=== PATIENT | female | born 1945 | race Caucasian/White ===

== ENCOUNTER 2023-04-04 18:01 | Inpatient (IN) | payer OTHER, MEDICAID ==
[~2023-04-04] VITALS: Ht 162.6 cm; Wt 82.1 kg
[2023-04-04 18:01] VITALS: BP_SYST 158; PULSE 63; RESP 20; TEMP 98.3; O2SAT 96
[2023-04-04] MEDS ORDERED: NACL 0.9% 1,000 ML IV ONE (18:15)
[2023-04-04 18:43] LABS: ERYTHROCYTE SEDIMENTATION RATE 19 MM/HR (0-20)
[2023-04-04 18:45] LABS: BASOPHILS # (AUTO) 0.1 K/uL (0.0-0.2); BASOPHILS % (AUTO) 0.7 % (0.0-2.0); EOSINOPHILS # (AUTO) 0.3 K/uL (0.0-0.4); EOSINOPHILS % (AUTO) 3.6 % (0.0-4.0); HEMATOCRIT 39.1 % (36-48); HEMOGLOBIN 12.6 g/dL (12.0-16.0); LYMPHOCYTES % (AUTO) 35.7 % (20.5-51.5); MEAN CORPUSCULAR HEMOGLOBIN 29 pg (27-31); MEAN CORPUSCULAR HGB CONC 32 % (32-36); MEAN CORPUSCULAR VOLUME 90 fL (79.0-98.0); MONOCYTES # (AUTO) 0.3 K/uL (0.0-1.0); MONOCYTES % (AUTO) 3.7 % (1.7-9.3); NEUTROPHILS # (AUTO) 4.7 K/uL (1.8-7.7); NEUTROPHILS % (AUTO) 56.3 % (40.0-70.0); PLATELET COUNT (AUTO) 173 K/uL (130-430); RED BLOOD CELL COUNT(AUTO) 4.36 MIL/uL (4.2-6.2); RED CELL DISTRIBUTION WIDTH 14.3 % (9.0-15.0); WHITE BLOOD COUNT (AUTO) 8.3 K/uL (4.8-10.8)
[2023-04-04 19:10] LABS: ANION GAP 5 (5-15); CARBON DIOXIDE 30 mmol/L (23-29); CHLORIDE 106 mmol/L (98-107); CREATININE 1.07 mg/dL (0.55-1.30); GLUCOSE 84 mg/dL (74-106); POTASSIUM 3.9 mmol/L (3.5-5.1); SODIUM SERUM 141 mmol/L (136-145); UREA NITROGEN, BLOOD 23 mg/dL (8-21)
[2023-04-04 19:15] LABS: ALANINE AMINOTRANSFERASE 18 U/L (12-78); ALBUMIN 2.9 g/dL (3.4-4.8); ASPARTATE AMINOTRANSFERASE 14 U/L (10-37); TOTAL BILIRUBIN 0.3 mg/dL (0.0-1.0); TOTAL PROTEIN, SERUM 7.1 g/dL (6.4-8.3)
[2023-04-04] MEDS ORDERED: KCL 20 mEq in D5NS 1000 mL 1,000 ML IV ONE ×2 (21:45→22:51)
[2023-04-04] MEDS ORDERED: BENA10TA73 PO (21:54)
[2023-04-04] MEDS ORDERED: CARV6.2554 PO (21:54)
[2023-04-04] MEDS ORDERED: VITD2000 PO (21:54)
[2023-04-04] MEDS ORDERED: SIMV-343 PO (21:54)
[2023-04-04] MEDS ORDERED: ASPI-1155 PO (21:54)
[2023-04-04] MEDS ORDERED: POTA8TAB66 PO (21:54)
[2023-04-04] MEDS ORDERED: FURO-149 PO (21:54)
[2023-04-04] MEDS ORDERED: ACET325T PO (21:54)
[2023-04-04 22:38] VITALS: BP_SYST 175; PULSE 56; RESP 18; TEMP 97.7; O2SAT 97
[2023-04-04 23:16] VITALS: BP_SYST 181; PULSE 61
[2023-04-04] MEDS ORDERED: hydrALAZINE HCL 20 MG/ML VIAL IVP PRN (23:45)
[2023-04-05 01:34] VITALS: BP_SYST 153; PULSE 74; RESP 20; TEMP 97.3; O2SAT 98
[2023-04-05 08:30] VITALS: O2SAT 97
[2023-04-05 12:00] VITALS: BP_SYST 138; PULSE 63; RESP 18; TEMP 98; O2SAT 98
[2023-04-05] MEDS ORDERED: ACETAMINOPHEN 325 MG TABLET PO PRN (14:00)
[2023-04-05 16:00] VITALS: BP_SYST 122; PULSE 67; RESP 18; TEMP 98.1; O2SAT 100
[2023-04-05 20:00] VITALS: BP_SYST 121; PULSE 64; RESP 18; TEMP 97.8; O2SAT 97
[2023-04-05] MEDS: ENOXAPARIN SODIUM 40 MG/0.4 ML SYRINGE SUBCUT SCH (20:33)
[2023-04-05] MEDS: MEGESTROL ACETATE 400 MG/10 ML UDC PO SCH (20:33)
[2023-04-05] MEDS: CARVEDILOL 6.25 MG TABLET (COREG) PO SCH (20:33)
[2023-04-05 23:11] VITALS: BP_SYST 120; PULSE 65; RESP 20; TEMP 97.8; O2SAT 96
[2023-04-06 08:30] VITALS: BP_SYST 156; PULSE 81; RESP 20; TEMP 97.4; O2SAT 94; O2SAT 98
[2023-04-06] MEDS ORDERED: SIMVASTATIN 20 MG TABLET PO SCH (09:00)
[2023-04-06] MEDS ORDERED: BENAZEPRIL HCL Non-Formulary 10 MG TABLET PO SCH (09:00)
[2023-04-06] MEDS ORDERED: FUROSEMIDE 40 MG TABLET PO SCH (09:00)
[2023-04-06] MEDS ORDERED: ASPIRIN 81 MG TAB.CHEW PO SCH (09:00)
[2023-04-06] MEDS ORDERED: LISINOPRIL 10 MG TABLET (PRINIVIL) PO SCH (09:00)
[2023-04-06] MEDS ORDERED: POTASSIUM CHLORIDE 8 MEQ TABLET.ER PO SCH (09:00)
[2023-04-06] MEDS ORDERED: CHOLECALCIFEROL (VITAMIN D3) 5,000 UNIT TABLET PO SCH (09:00)
[2023-04-06] MEDS: MEGESTROL ACETATE 400 MG/10 ML UDC PO SCH ×2 (09:31→22:01)
[2023-04-06] MEDS: CARVEDILOL 6.25 MG TABLET (COREG) PO SCH ×2 (09:40→22:01)
[2023-04-06 12:00] VITALS: BP_SYST 121; PULSE 72; RESP 16; TEMP 98.4; O2SAT 96
[2023-04-06 16:00] VITALS: BP_SYST 119; PULSE 80; RESP 16; TEMP 98
[2023-04-06 20:00] VITALS: BP_SYST 150; PULSE 79; RESP 16; TEMP 97.3; O2SAT 97; O2SAT 98
[2023-04-06] MEDS: ENOXAPARIN SODIUM 40 MG/0.4 ML SYRINGE SUBCUT SCH (22:01)
[2023-04-07] VITALS: BP_SYST 130; PULSE 63; RESP 16; TEMP 97.5; O2SAT 97
[2023-04-07 05:21] LABS: BASOPHILS % (AUTO) 0.6 % (0.0-2.0); EOSINOPHILS # (AUTO) 0.2 K/uL (0.0-0.4); HEMATOCRIT 37.5 % (36-48); HEMOGLOBIN 12.3 g/dL (12.0-16.0); LYMPHOCYTES # (AUTO) 2.7 K/uL (1.0-5.5); LYMPHOCYTES % (AUTO) 37.8 % (20.5-51.5); MEAN CORPUSCULAR HEMOGLOBIN 29 pg (27-31); MEAN CORPUSCULAR HGB CONC 33 % (32-36); MEAN CORPUSCULAR VOLUME 89 fL (79.0-98.0); MONOCYTES # (AUTO) 0.3 K/uL (0.0-1.0); MONOCYTES % (AUTO) 3.6 % (1.7-9.3); NEUTROPHILS # (AUTO) 3.9 K/uL (1.8-7.7); PLATELET COUNT (AUTO) 157 K/uL (130-430); RED BLOOD CELL COUNT(AUTO) 4.24 MIL/uL (4.2-6.2); RED CELL DISTRIBUTION WIDTH 13.9 % (9.0-15.0); WHITE BLOOD COUNT (AUTO) 7.1 K/uL (4.8-10.8)
[2023-04-07 05:43] LABS: ANION GAP 6 (5-15); CALCIUM 8.8 mg/dL (8.4-11.0); CARBON DIOXIDE 27 mmol/L (23-29); CHLORIDE 103 mmol/L (98-107); CREATININE 0.73 mg/dL (0.55-1.30); GLUCOSE 87 mg/dL (74-106); POTASSIUM 3.7 mmol/L (3.5-5.1); SODIUM SERUM 136 mmol/L (136-145); UREA NITROGEN, BLOOD 16 mg/dL (8-21)
[2023-04-07 08:15] VITALS: O2SAT 98
[2023-04-07 08:20] VITALS: BP_SYST 126; PULSE 59; RESP 12; TEMP 97.9; O2SAT 98
[2023-04-07 16:00] VITALS: BP_SYST 141; PULSE 68; RESP 16; TEMP 98.6; O2SAT 94
[2023-04-07 19:44] VITALS: BP_SYST 139; PULSE 90; RESP 18; TEMP 98.7; O2SAT 97
== END 2023-04-07 20:20 | DRG 640 ==
LOC: SED 18:01 → SMU 21:32
PROVIDERS: ADMIT Family Medicine; ATTEND Family Medicine
DX: E86.0 Dehydration (principal); E43 Unspecified severe protein-calorie malnutrition; I69.991 Dysphagia following unspecified cerebrovascular disease; R13.10 Dysphagia, unspecified; E78.5 Hyperlipidemia, unspecified; I10 Essential (primary) hypertension; Z91.013 Allergy to seafood; Z79.899 Other long term (current) drug therapy; Z68.31 Body mass index [BMI] 31.0-31.9, adult
CPT/HCPCS: 36415; 70491-TC; 76376; 80048; 80053; 83735; 85025; 85651-TC; 87081; 92610-GN; 96360; 99285; J0360; J1650; Q9967